=== PATIENT | female | born 1930 | race Caucasian/White ===

== ENCOUNTER 2017-01-11 16:50 | Emergency (ER) | payer MEDICARE, BC ==
[~2017-01-11 16:50] MED LIST: EPINEPHrine 10 ML SYRINGE (0.1 MG/ML) ONE
--- NOTE | 2017-01-11 22:28 | ED ---
CPR HPI - General Chief Complaint: Cardiac Arrest/CPR Stated Complaint: Cardia Arrest Time Seen by Provider: 01/11/17 16:59 Source: EMS Mode of arrival: EMS Limitations: altered mental status, physical limitation - History of Present Illness Initial Comments: This patient is an 86-year-old woman brought to the emergency department by ambulance. I obtained history from the EMS crew and from the patient's son and grandson. It was reported that as they were in the process of moving the patient from 1 residence, to a new residence, she was at home approximately 15- 20 minutes. When family returned they found her unresponsive, they activated the EMS system, and they started performing bystander CPR. On EMS arrival patient was found unresponsive. An AED recommended and shock was delivered. The patient was intubated with a Vivek tube, line started, meds were given, and patient had ACLS protocol, see their written record. She did receive it was reported a total of 5 mg of epinephrine. At one point they did obtain an organized, wide-complex rhythm and there were a few agonal respirations, but then this was lost again and ACLS resumed. MD Complaint: found unresponsive -: minute(s) Place: home Bystander CPR Performed: Yes AED Applied by Bystander/Plant Engineering Manager: Yes Shock Advised: Yes Number of Shocks Delivered: 1 Initial Findings in the Field: unresponsive, no respirations, no pulse Associated Injuries: No Treatments Prior to Arrival: intubation (Vivek tube) - Related Data Allergies Allergy/AdvReac Type Severity Reaction Status Date / Time Unable to Assess Allergy Verified 01/11/17 17:14 Review of Systems ROS Statement: Those systems with pertinent positive or pertinent negative responses have been documented in the HPI. ROS Other: All systems not noted in ROS Statement are negative. Limitations: ROS unobtainable due to patients medical condition Past Medical History Past Medical History: Unable to Obtain History of Any Multi-Drug Resistant Organisms: Unobtainable Past Surgical History: Unable to Obtain Past Psychological History: Unable to Obtain Smoking Status: Unknown if ever smoked Past Alcohol Use History: Unable to Obtain Past Drug Use History: Unable to Obtain General Exam Limitations: altered mental status, physical limitation General appearance: obese, other (Unresponsive) Head exam: Present: atraumatic Pupils: Present: other (pupils are approximate 6 mm and nonreactive) ENT exam: Present: other (There is a Vivek tube present in the oropharynx. Mucous membranes are cyanotic.) Neck exam: Present: other (No obvious trauma. No bony step-off or deformity) Respiratory exam: Present: rhonchi (There are a few rhonchi presents with bagging through the tube. There is no spontaneous inspiratory effort.) Cardiovascular Exam: Present: other (Palpation reveals no palpable PMI. There is no detectable pulses. No cardiac sounds on auscultation). Absent: regular rate, normal heart sounds GI/Abdominal exam: Present: other (No bowel sounds). Absent: tenderness, guarding, mass Extremities exam: Absent: pedal edema Back exam: Present: normal inspection, other (No obvious bony deformity or step- off) Neurological exam: Present: other (GCS is 3, no cranial nerve reflexes, no deep tendon reflexes.) Skin exam: Present: dry, intact, mottled. Absent: rash Medical Decision Making - Medical Decision Making The patient had additional epinephrine and CPR here. Following this there is slow PEA, rate approximately 20, and given that there is no response, and we are informed by the patient's grandson that she had wanted to be no CODE STATUS , the patient is pronounced at 1650. I did discuss the case with the medical transcriber who will release the patient for disposition. Disposition Clinical Impression: Cardiopulmonary arrest Disposition: Condition: Undetermined Referrals: None,Stated [Primary Care Provider] - 1-2 days Preliminary Cause of : Cardiopulmonary arrest
== END 2017-01-11 20:20 | disposition expired ==
LOC: EDBD 16:50 → EC 16:50
DX: I46.9 Cardiac arrest, cause unspecified (principal)
CPT/HCPCS: 99285; 92950; J0171